=== PATIENT | male | born 1970 | race Caucasian/White ===

== ENCOUNTER 2018-07-19 13:39 | Emergency (ER) | payer SELFPAY ==
[~2018-07-19] VITALS: Ht 170.2 cm; Wt 95.0 kg
[2018-07-19] MEDS ORDERED: KETOROLAC 30MG/ML VIAL IV STA (15:48)
[2018-07-19] MEDS ORDERED: ONDANSETRON HCL 4MG/2ML INJ IV STA (15:48)
[2018-07-19] MEDS ORDERED: SODIUM CHLORIDE 0.9% 1,000 ML IV ONE (15:48)
[2018-07-19 16:13] LABS: BASOPHILS % 1.1 % (0.0-2.0); EOSINOPHILS % 0.3 % (0.0-5.0); HEMATOCRIT. 46.4 % (42.0-52.0); HEMOGLOBIN. 16.3 g/dL (14.0-18.0); LYMPHOCYTES % 26.6 % (20.0-50.0); MEAN CORPUSCULAR VOLUME 91.1 fL (80.0-94.0); MEAN PLATELET VOLUME 8.1 fl (7.4-10.4); PLATELET 229 x1000/uL (130-400); RED CELL DISTRIBUTION WIDTH 13.4 % (11.6-14.6)
[2018-07-19 16:17] LABS: CHLORIDE 107 mEq/L (98-107)
[2018-07-19 16:18] LABS: PROTHROMBIN TIME 10.1 sec (9.1-11.1)
[2018-07-19 18:24] LABS: CLARITY URINE CLEAR (CLEAR); COLOR URINE YELLOW (YELLOW); KETONES URINE NEGATIVE (NEGATIVE); LEUKOCYTE ESTERASE URINE NEGATIVE (NEGATIVE); NITRITE URINE NEGATIVE (NEGATIVE); OCCULT BLOOD URINE NEGATIVE (NEGATIVE); PH URINE 6.5 (4.5-8.0); PROTEIN URINE NEGATIVE (NEGATIVE); SPECIFIC GRAVITY URINE 1.007 (1.005-1.030); UROBILINOGEN URINE 0.2 E.U./dL (0.2-1.0)
[2018-07-19 19:30] VITALS: BP 142/76
== END 2018-07-19 19:49 | disposition home or self-care (01) ==
LOC: ER 13:39
DX: K52.9 Noninfective gastroenteritis and colitis, unspecified (principal); I10 Essential (primary) hypertension
CPT/HCPCS: 36415; 74176; 80053; 81003; 83690; 84484; 85025; 85610; 93005; 96374; 96375; 99284; J1885; J2405; J7030; Z7610

== ENCOUNTER 2019-03-03 16:37 | Emergency (ER) | payer SELFPAY ==
[~2019-03-03] VITALS: Ht 167.6 cm; Wt 85.0 kg
[2019-03-03] MEDS ORDERED: KETOROLAC 30MG/ML VIAL IV STA (17:32)
[2019-03-03] MEDS ORDERED: ONDANSETRON HCL 4MG/2ML INJ IV STA (17:32)
[2019-03-03] MEDS ORDERED: SODIUM CHLORIDE 0.9% 1,000 ML IV ONE (17:32)
[2019-03-03 18:24] LABS: BASOPHILS % 0.6 % (0.0-2.0); EOSINOPHILS % 0.5 % (0.0-5.0); HEMATOCRIT. 46.6 % (42.0-52.0); LYMPHOCYTES % 21.9 % (20.0-50.0); MEAN CORPUSCULAR VOLUME 93.3 fL (80.0-94.0); MEAN PLATELET VOLUME 8.6 fl (7.4-10.4); MONOCYTES % 7.2 % (2.0-8.0); NEUTROPHILS % 69.8 % (40.0-76.0); PLATELET 208 x1000/uL (130-400); RED BLOOD CELL COUNT 4.99 mill/uL (4.7-6.1); RED CELL DISTRIBUTION WIDTH 13.5 % (11.6-14.6)
[2019-03-03 18:27] LABS: CHLORIDE 109 mEq/L (98-107)
[2019-03-03 18:30] LABS: PARTIAL THROMBOPLASTIN TIME 25.9 sec (23.4-31.0); PROTHROMBIN TIME 10.7 sec (9.6-11.0)
[2019-03-03 18:31] LABS: ETHANOL BLOOD < 10 mg/dL
[2019-03-03 18:37] LABS: CREATINE KINASE 290 IU/L (39-308)
[2019-03-03 18:40] LABS: CREATINE KINASE MB FRACTION 3.3 ng/mL (0.5-3.6)
[2019-03-03 19:07] LABS: *AMPHETAMINES SCREEN URINE NEGATIVE (NEGATIVE); *BARBITURATES SCREEN URINE NEGATIVE (NEGATIVE); *BENZODIAZEPINES SCREEN URINE NEGATIVE (NEGATIVE); METHADONE URINE SCREEN NEGATIVE (NEGATIVE)
[2019-03-03 19:08] LABS: CANNABINOID URINE SCREEN NEGATIVE (NEGATIVE); OPIATES URINE SCREEN NEGATIVE (NEGATIVE); PHENCYCLIDINE URINE SCREEN NEGATIVE (NEGATIVE)
[2019-03-03 19:11] LABS: *COCAINE SCREEN URINE NEGATIVE (NEGATIVE)
[2019-03-03] MEDS ORDERED: LORAZEPAM 2MG/ML CPJ IV ONE (20:30)
[2019-03-03] MEDS ORDERED: ONDANSETRON HCL 4MG/2ML INJ IV ONE (20:30)
[2019-03-03] MEDS ORDERED: MORPHINE SULFATE 4 MG/ML CPJ (NOT FOR IM USE) IV ONE (20:30)
[2019-03-03 22:05] VITALS: BP 124/77
== END 2019-03-03 22:07 | disposition home or self-care (01) ==
LOC: ER 16:37
DX: R07.89 Other chest pain (principal); M62.838 Other muscle spasm; I10 Essential (primary) hypertension
CPT/HCPCS: 36415; 71045; 80053; 80305; 80320; 82550; 82553; 83690; 83880; 84443; 84484; 85025; 85610; 85651; 85730; 93005; 96374; 96375; 96376; 99284; J1885; J2060; J2270; J2405; J7030; G0480

== ENCOUNTER 2019-03-06 21:06 | Emergency (ER) | payer MEDICAID ==
[~2019-03-06] VITALS: Ht 167.6 cm; Wt 86.0 kg
[2019-03-07] MEDS ORDERED: KETOROLAC 30MG/ML VIAL IM ONE (00:15)
[2019-03-07 01:34] LABS: CLARITY URINE CLEAR (CLEAR); COLOR URINE YELLOW (YELLOW); KETONES URINE NEGATIVE (NEGATIVE); LEUKOCYTE ESTERASE URINE NEGATIVE (NEGATIVE); NITRITE URINE NEGATIVE (NEGATIVE); OCCULT BLOOD URINE NEGATIVE (NEGATIVE); PROTEIN URINE NEGATIVE (NEGATIVE)
[2019-03-07 02:34] VITALS: BP 142/87
== END 2019-03-07 02:35 | disposition home or self-care (01) ==
LOC: ER 21:06
DX: R51 Headache (principal); R07.89 Other chest pain; M54.9 Dorsalgia, unspecified; I10 Essential (primary) hypertension
CPT/HCPCS: 71045; 81003; 93005; 96372; 99284; J1885

== ENCOUNTER 2019-05-12 12:17 | Emergency (ER) | payer MEDICAID ==
[~2019-05-12] VITALS: Ht 170.2 cm; Wt 85.0 kg
[2019-05-12] MEDS ORDERED: KETOROLAC 30MG/ML VIAL IV STA (13:33)
[2019-05-12] MEDS ORDERED: SODIUM CHLORIDE 0.9% 1,000 ML IV ONE (13:33)
[2019-05-12 17:58] VITALS: BP 129/80
[2019-05-12 18:20] LABS: CHLORIDE 113 mEq/L (98-107)
[2019-05-12 18:24] LABS: BASOPHILS % 0.6 % (0.0-2.0); HEMATOCRIT. 45.4 % (42.0-52.0); HEMOGLOBIN. 15.4 g/dL (14.0-18.0); LYMPHOCYTES % 40.6 % (20.0-50.0); MEAN CORPUSCULAR HEMOGLOBIN 31.9 pg (28.0-32.0); MEAN CORPUSCULAR VOLUME 93.9 fL (80.0-94.0); MEAN PLATELET VOLUME 8.2 fl (7.4-10.4); MONOCYTES % 7.4 % (2.0-8.0); NEUTROPHILS % 50.4 % (40.0-76.0); PLATELET 198 x1000/uL (130-400); RED BLOOD CELL COUNT 4.84 mill/uL (4.7-6.1); RED CELL DISTRIBUTION WIDTH 12.9 % (11.6-14.6)
== END 2019-05-12 19:18 | disposition home or self-care (01) ==
LOC: ER 12:17
DX: M79.18 Myalgia, other site (principal); R51 Headache; I10 Essential (primary) hypertension
CPT/HCPCS: 36415; 71045; 80053; 85025; 93005; 96361; 96374; 99284; J1885; J7030